=== PATIENT | female | born 2000 | race Caucasian/White ===

== ENCOUNTER 2025-01-12 12:47 | Inpatient (IN) ==
[2025-01-12] MEDS ORDERED: OXYTOCIN 30 UNITS/NSS 30 UNITS/500 ML BAG IV PRN (13:32)
[2025-01-12] MEDS ORDERED: CALCIUM CARBONATE 500 MG CHEWABLE TAB PO PRN (13:32)
[2025-01-12] MEDS ORDERED: LIDOCAINE 1% LOCAL 20 ML VIAL INFIL PRN (13:32)
--- NOTE | 2025-01-12 13:47 | History & Physical Report ---
Date of Service January 12, 2025 Assessment & Plan (1) Bicornate uterus complicating : (2) Ulcerative colitis: (3) Uterine contractions at greater than 20 weeks of gestation: Plan: 24-year-old G1, P0 at 38 weeks and 5 days of gestation and presents today in labor, Vital signs stable afebrile, heart rate reassuring, GBS negative, Plan to admit, monitor, labs, patient desires to ambulate and does not plan to get epidural for now, All questions were answered. Admission and Anticipated Discharge Date Admission Date: January 12, 2025 History of Present Illness Chief Complaint: contractions Primary Care Provider: NO PCP Patient is a 24-year-old at 38 weeks and 5 days gestation who has been feeling contractions since last night 10 PM, they got more regular and painful after 2 AM. She had pinkish mucousy discharge but no leakage of fluid or vaginal bleeding. She has good movements. Her has been uncomplicated, 1. History of ulcerative colitis under control with medications, 2. Bicornuate uterus, normal growth last week per MFM ultrasound, GBS negative Allergies Allergy/AdvReac Type Severity Reaction Status Date / Time No Known Allergies Allergy Unverified 01/12/25 13:47 Home Medications Medication Instructions Recorded Confirmed Type 1 tab PO DAILY 01/12/25 01/12/25 History azathioprine 50 mg tablet (Imuran) 100 mg PO DAILY 01/12/25 01/12/25 History cyanocobalamin (vitamin B-12) 1,000 mcg PO DAILY 01/12/25 01/12/25 History 1,000 mcg capsule ferrous sulfate 65 mg PO DAILY 01/12/25 01/12/25 History mesalamine 1.2 gram tablet,delayed 4.8 g PO DAILY 01/12/25 01/12/25 History release (Lialda) Patient History Medical History Abnormal colonoscopy Anemia affecting Bicornate uterus complicating Bicornate uterus Ulcerative colitis Surgical History History of appendectomy Family History Grandfather (Maternal) Hypertension Grandmother (Maternal) Diabetes 1.5, managed as type 2 Other Congenital kidney disease Social History Smoking Status: Never smoker Second Hand Exposure: No; Do You Dip or Chew Tobacco: No; Hx Alcohol Use: No Hx Substance Use: No Preferred Language: Romanian Communication Ability: Effective Calliope Player Required: No Beliefs That Will Affect Care: None marital status: Current Living Situation: Spouse Current Living Situation Comment: Pt lives with her , Emery, and her sister, Maria Del Carmen. Pt has 2 cats. Other Information That Helps Us Care for You: No Feels Safe at Home: Yes Safety Concerns: Feels Safe At This Time Assistive Devices: None LITIGATION SUPPORT ANALYST History no history of STDs, no history of chlamydia, gonorrhea, herpes Review of Systems as per Subjective / HPI Physical Exam Constitutional: WD/WN, vitals as above well developed and well nourished Gastrointestinal (Abdomen): normal bowel sounds, soft, nontender, no hepatos plenomegaly Genitourinary: normal external appearance OB Exam Abdomen: + vertex ( confirmed by ultrasound) Manual OB Exam: + cervical dilation 4 cm, + cervical effacement 80% and + station -2 OB Exam Monitor Tracing: + external uterine monitor used and + category I Results & Data Vital Signs (Past 12 Hours) Vital Signs Temp Pulse Resp BP O2 Del Method 01/12/25 13:34 68 119/73 01/12/25 13:11 37.0 C 76 18 127/74 Room Air 01/12/25 12:57 76 127/74 (1) Bicornate uterus complicating Trimester: third trimester Qualified Code(s): O34.03 - Maternal care for unspecified congenital malformation of uterus, third trimester; Q51.3 - Bicornate uterus (2) Ulcerative colitis Ulcerative colitis location: unspecified ulcerative colitis location Digestive disease complication type: unspecified complication Qualified Code(s): K51.919 - Ulcerative colitis, unspecified with unspecified complications
[2025-01-12] MEDS: LACTATED RINGER'S 1,000 ML IV PRN (14:07)
[2025-01-12 14:48] LABS: Hematocrit (blood only) 36.7 % (37.0-47.0); Hemoglobin 13.0 g/dl (12.0-16.0); Mean Corpuscular Hemoglobin 32.0 pg (25.0-34.0); Mean Corpuscular Volume 90.4 fL (80.0-100.0); Platelet Count 231 K/uL (130-400); RDW Standard Deviation 45.5 fL (36.4-46.3); Red Blood Count 4.06 M/uL (4.20-5.40); White Blood Count 10.70 K/ul (4.8-10.8)
[2025-01-12] MEDS ORDERED: SODIUM CHLORIDE 0.9% PF INJ 10 ML VIAL ONE (16:09)
[2025-01-12] MEDS ORDERED: SODIUM CHLORIDE 0.9% PF INJ 10 ML VIAL EPI PRN (16:40)
[2025-01-12] MEDS ORDERED: NALOXONE HCL 0.4 MG/1 ML VIAL/CARP IV PRN (16:40)
[2025-01-12] MEDS ORDERED: LIDOCAINE 2% MPF LOCAL 5 ML VIAL EPI PRN (16:40)
[2025-01-12] MEDS ORDERED: NALBUPHINE HCL INJ 10 MG/ML AMP IV PRN (16:40)
[2025-01-12] MEDS ORDERED: diphenhydrAMINE 50 MG/ML VIAL IV PRN (16:40)
[2025-01-12] MEDS ORDERED: ROPIVACAINE 0.5% PF 5 MG/ML 20 ML VIAL EPI PRN (16:40)
[2025-01-12] MEDS ORDERED: BUPIVACAINE 0.25% PF 30 ML VIAL EPI PRN (16:40)
[2025-01-12] MEDS ORDERED: NALOXONE HCL 1 MG in SODIUM CHLORIDE 0.9% 1,000 ML IV PRN (16:40)
--- NOTE | 2025-01-12 16:40 | Anesthesiology Consultation ---
Date of Service January 12, 2025 Assessment & Plan ASA ASA3 Proposed Anesthesia Anesthesia Type: Labor Epidural Risk / Benefits Reviewed With: PT / POA / Parent / Guardian, Accepts Plan and Informed Consent Obtained History Height/Weight Height: 5 ft 4 in Weight: 84.822 kg Allergies Allergy/AdvReac Type Severity Reaction Status Date / Time No Known Allergies Allergy Unverified 01/12/25 13:47 Medications Home Medications Medication Instructions Recorded Confirmed Last Taken 1 tab PO DAILY 01/12/25 01/12/25 01/12/25 08:00 azathioprine 50 mg tablet (Imuran) 100 mg PO DAILY 01/12/25 01/12/25 01/12/25 08:00 cyanocobalamin (vitamin B-12) 1,000 mcg PO DAILY 01/12/25 01/12/25 01/12/25 08:00 1,000 mcg capsule ferrous sulfate 65 mg PO DAILY 01/12/25 01/12/25 01/12/25 08:00 mesalamine 1.2 gram tablet,delayed 4.8 g PO DAILY 01/12/25 01/12/25 01/12/25 08:00 release (Lialda) Active Medications Generic Name Dose Route Start Last Admin Trade Name Freq PRN Reason Stop Dose Admin Lactated Ringer's 1,000 mls @ 150 mls/hr 01/12/25 13:32 01/12/25 16:02 Lr IV 01/14/25 13:31 999 mls/hr .[id number] PRN Infusion L&D Protocol Protocol Past Medical History Medical History Abnormal colonoscopy Anemia affecting Bicornate uterus complicating Bicornate uterus Ulcerative colitis Exercise / Class Metabolic Activity II 4-5 Yardwork/Stairs/Walk up hill Past Family History Family History Grandfather (Maternal) Hypertension Grandmother (Maternal) Diabetes 1.5, managed as type 2 Other Congenital kidney disease Past Surgical History Surgical History History of appendectomy Past Anesthesia History No Hx of Anesthesia Complications and No Family Hx of Anesthesia Complications History of PONV No Hx of PONV and No Hx of Motion Sickness Social History Smoking Status: Never smoker Do You Dip or Chew Tobacco: No Hx Alcohol Use: No Hx Substance Use: No substance use type: does not use Review of Systems denies fever/cough/ colds/ chest pain/ SOB/ NATASHA denies NATASHA Physical Exam Vital Signs Last Vital Signs Temp 36.7 C 01/12/25 16:21 Pulse 80 01/12/25 16:36 Resp 20 01/12/25 16:21 BP 126/72 01/12/25 16:36 Pulse Ox 99 01/12/25 16:36 O2 Del Method Room Air 01/12/25 13:11 ENMT Mouth: no TMJ abnormality and no dentition abnormality Thyromental Distance: > or= 3.5 Finger Breadths Mallampati Class: II Neck neck extension not limited Respiratory normal respiratory effort; no respiratory distress Auscultation: lungs clear to auscultation bilaterally Cardiovascular Rate/Rhythm: regular rate and regular rhythm Neurologic moves all extremities Psychiatric Orientation: alert and oriented x 3 Testing Laboratory Results 01/12/25 14:07
[2025-01-12] MEDS: BUPIVACAINE 0.25% PF 30 ML VIAL ONE (17:11)
[2025-01-12] MEDS: LIDOCAINE 2%/EPINEPHRINE 1:200,000 20 ML PF ONE (17:11)
[2025-01-12] MEDS: SODIUM CHLORIDE 0.9% PF INJ 10 ML VIAL EPI STA (17:13)
[2025-01-12] MEDS: LIDOCAINE 2%/EPINEPHRINE 1:200,000 20 ML PF EPI STA (17:13)
[2025-01-12] MEDS: fentANYL 2 MCG/ML BUPIVacaine 0.125%-NSS 100ML BAG ONE (17:16)
--- NOTE | 2025-01-12 17:56 | Obstetrical Progress Note ---
Date of Service January 12, 2025 Assessment & Plan Admission and Anticipated Discharge Date Admission Date: January 12, 2025 Subjective Patient received epidural for pain and comfortable now. Vital signs stable afebrile, heart rate category 1, Contractions every 4-5 minutes, Cervix is 4-5 cm dilated, 80% effaced, bulging bag, AROM clear initially and then bloody change, head at -2 station anterior fontanelle is at 9 o'clock position, Continue to monitor closely, Augment with oxytocin as needed, All questions were answered. Results & Data Vital Signs (Past 12 Hours) Vital Signs Temp Pulse Resp BP Pulse Ox O2 Del Method 01/12/25 17:53 89 92 01/12/25 17:51 100 01/12/25 17:51 79 01/12/25 17:51 80 140/75 01/12/25 17:47 87 156/78 H 01/12/25 17:46 83 100 01/12/25 17:42 89 129/80 01/12/25 17:41 91 H 99 01/12/25 17:36 82 125/65 100 01/12/25 17:31 78 128/68 97 01/12/25 17:30 18 01/12/25 17:30 18 01/12/25 17:26 98 01/12/25 17:26 78 01/12/25 17:26 75 124/69 01/12/25 17:22 88 91 01/12/25 17:21 99 01/12/25 17:21 88 01/12/25 17:21 85 126/69 01/12/25 17:18 78 124/67 01/12/25 17:17 87 118/68 01/12/25 17:16 83 99 01/12/25 17:15 89 129/69 01/12/25 17:12 86 124/65 01/12/25 17:11 86 100 01/12/25 17:10 90 125/66 01/12/25 17:09 85 130/71 01/12/25 17:07 86 134/70 01/12/25 17:06 84 100 01/12/25 17:05 131/73 01/12/25 17:02 81 136/71 01/12/25 17:01 100 01/12/25 17:01 71 01/12/25 17:01 80 134/70 01/12/25 16:59 80 145/81 H 01/12/25 16:56 80 117/69 100 01/12/25 16:55 80 122/73 01/12/25 16:52 80 137/77 01/12/25 16:51 92 H 99 01/12/25 16:50 83 127/76 01/12/25 16:46 83 100 01/12/25 16:41 75 99 01/12/25 16:36 80 126/72 99 01/12/25 16:31 93 H 100 01/12/25 16:26 77 99 01/12/25 16:21 36.7 C 84 20 127/85 100 01/12/25 16:16 70 99 01/12/25 15:51 83 129/76 01/12/25 15:36 124/68 01/12/25 15:21 90 137/79 01/12/25 14:36 72 130/80 01/12/25 14:19 70 127/76 01/12/25 13:48 80 121/73 01/12/25 13:34 68 119/73 01/12/25 13:11 37.0 C 76 18 127/74 Room Air 01/12/25 12:57 76 127/74
[2025-01-12] MEDS: BUPIVACAINE 0.25% PF 30 ML VIAL EPI STA (18:40)
[2025-01-12] MEDS: OXYTOCIN 30 UNITS/NSS 30 UNITS/500 ML BAG IV PRN (18:49)
--- NOTE | 2025-01-12 22:03 | Obstetrical Progress Note ---
Date of Service January 12, 2025 Assessment & Plan Admission and Anticipated Discharge Date Admission Date: January 12, 2025 Subjective Patient has been comfortable. Vital signs stable afebrile, heart rate category 1, [place] contractions were every 3 to 4 minutes, Pitocin is at 10 milliunits/min, Vaginal exam, cervix is 7 cm, 80%, head is at 0 station, anterior fontanelle is flat 9 o'clock position, Continue monitor closely. Results & Data Vital Signs (Past 12 Hours) Vital Signs Temp Pulse Resp BP Pulse Ox O2 Del Method 01/12/25 22:01 85 98 01/12/25 21:56 88 97 01/12/25 21:51 99 H 96 01/12/25 21:46 105 H 97 01/12/25 21:43 97 H 135/80 01/12/25 21:41 102 H 97 01/12/25 21:36 99 H 96 01/12/25 21:31 98 H 98 01/12/25 21:26 112 H 97 01/12/25 21:21 104 H 95 01/12/25 21:16 90 97 01/12/25 21:12 86 141/65 H 01/12/25 21:11 87 96 01/12/25 21:06 94 H 98 01/12/25 21:01 88 98 01/12/25 20:56 102 H 98 01/12/25 20:51 89 99 01/12/25 20:46 86 98 01/12/25 20:44 90 135/83 01/12/25 20:41 109 H 98 01/12/25 20:36 138 H 99 01/12/25 20:31 79 98 01/12/25 20:26 78 98 01/12/25 20:21 85 97 01/12/25 20:16 80 98 01/12/25 20:12 81 104/55 L 01/12/25 20:11 82 99 01/12/25 20:06 74 99 01/12/25 20:01 85 98 01/12/25 19:58 78 111/58 L 01/12/25 19:56 90 98 01/12/25 19:52 92 H 91 01/12/25 19:51 88 95 01/12/25 19:46 85 97 01/12/25 19:41 99 01/12/25 19:41 85 01/12/25 19:41 86 119/62 01/12/25 19:36 88 97 01/12/25 19:31 81 98 01/12/25 19:27 85 124/63 01/12/25 19:26 85 99 01/12/25 19:21 88 99 01/12/25 19:16 91 H 99 01/12/25 19:11 82 127/70 99 01/12/25 19:08 92 H 92 01/12/25 19:06 92 H 100 01/12/25 19:05 16 01/12/25 19:05 37.1 C 16 01/12/25 19:01 100 H 100 01/12/25 18:56 92 H 129/70 100 01/12/25 18:51 88 99 01/12/25 18:46 85 100 01/12/25 18:41 97 H 99 01/12/25 18:36 83 100 01/12/25 18:31 89 100 01/12/25 18:26 89 100 01/12/25 18:25 96 H 93 01/12/25 18:22 78 130/65 01/12/25 18:21 75 98 01/12/25 18:17 74 130/64 01/12/25 18:16 77 98 01/12/25 18:12 78 130/62 01/12/25 18:11 72 98 01/12/25 18:06 76 128/69 98 01/12/25 18:01 78 126/71 99 01/12/25 18:00 18 01/12/25 18:00 18 01/12/25 17:56 99 01/12/25 17:56 80 01/12/25 17:56 78 123/60 01/12/25 17:53 89 92 01/12/25 17:51 100 01/12/25 17:51 79 01/12/25 17:51 80 140/75 01/12/25 17:47 87 156/78 H 01/12/25 17:46 83 100 01/12/25 17:42 89 129/80 01/12/25 17:41 91 H 99 01/12/25 17:36 82 125/65 100 01/12/25 17:31 78 128/68 97 01/12/25 17:30 18 01/12/25 17:30 18 01/12/25 17:26 98 01/12/25 17:26 78 01/12/25 17:26 75 124/69 01/12/25 17:22 88 91 01/12/25 17:21 99 01/12/25 17:21 88 01/12/25 17:21 85 126/69 01/12/25 17:18 78 124/67 01/12/25 17:17 87 118/68 01/12/25 17:16 83 99 01/12/25 17:15 89 129/69 01/12/25 17:12 86 124/65 01/12/25 17:11 86 100 01/12/25 17:10 90 125/66 01/12/25 17:09 85 130/71 01/12/25 17:07 86 134/70 01/12/25 17:06 84 100 01/12/25 17:05 131/73 01/12/25 17:02 81 136/71 01/12/25 17:01 100 01/12/25 17:01 71 01/12/25 17:01 80 134/70 01/12/25 16:59 80 145/81 H 01/12/25 16:56 80 117/69 100 01/12/25 16:55 80 122/73 01/12/25 16:52 80 137/77 01/12/25 16:51 92 H 99 01/12/25 16:50 83 127/76 01/12/25 16:46 83 100 01/12/25 16:41 75 99 01/12/25 16:36 80 126/72 99 01/12/25 16:31 93 H 100 01/12/25 16:26 77 99 01/12/25 16:21 36.7 C 84 20 127/85 100 01/12/25 16:16 70 99 01/12/25 15:51 83 129/76 01/12/25 15:36 124/68 01/12/25 15:21 90 137/79 01/12/25 14:36 72 130/80 01/12/25 14:19 70 127/76 01/12/25 13:48 80 121/73 01/12/25 13:34 68 119/73 01/12/25 13:11 37.0 C 76 18 127/74 Room Air 01/12/25 12:57 76 127/74
[2025-01-12] MEDS: ACETAMINOPHEN 500 MG TAB PO PRN (23:45)
[2025-01-12] MEDS: ONDANSETRON INJ 2 MG/ML 2 ML VIAL IV PRN (23:45)
[2025-01-12] MEDS: fentANYL 2 MCG/ML BUPIVacaine 0.125%-NSS 100ML BAG EPI PRN (23:46)
--- NOTE | 2025-01-13 01:45 | Obstetrical Progress Note ---
Date of Service January 13, 2025 Assessment & Plan Admission and Anticipated Discharge Date Admission Date: January 12, 2025 Subjective Patient has been pushing for the last 20 minutes. heart rate category 1, contractions every 2 to 3 minutes, had visit +2 station, Continue to monitor closely, Anticipate . Results & Data Vital Signs (Past 12 Hours) Vital Signs Temp Pulse Resp BP Pulse Ox 01/13/25 01:43 65 01/13/25 01:42 68 124/60 94 01/13/25 01:38 70 79 L 01/13/25 01:37 65 93 01/13/25 01:32 70 95 01/13/25 01:30 69 82 L 01/13/25 01:27 37.0 C 72 93 01/13/25 01:23 98 H 90 01/13/25 01:22 83 82 L 01/13/25 01:17 86 89 L 01/13/25 01:15 36.8 C 01/13/25 01:12 84 97 01/13/25 01:11 94 H 93 01/13/25 01:07 89 98 01/13/25 01:03 101 H 91 01/13/25 01:02 95 H 97 01/13/25 00:57 82 95 01/13/25 00:52 79 96 01/13/25 00:47 83 96 01/13/25 00:43 83 124/73 01/13/25 00:42 90 98 01/13/25 00:37 84 98 01/13/25 00:32 82 98 01/13/25 00:27 81 97 01/13/25 00:22 80 97 01/13/25 00:17 79 96 01/13/25 00:13 77 131/74 01/13/25 00:12 87 99 01/13/25 00:07 80 98 01/13/25 00:02 87 98 01/12/25 23:57 80 98 01/12/25 23:52 84 98 01/12/25 23:48 90 94 01/12/25 23:47 83 99 01/12/25 23:42 99 01/12/25 23:42 83 01/12/25 23:42 81 143/78 H 01/12/25 23:37 107 H 94 01/12/25 23:32 86 97 01/12/25 23:27 91 H 96 01/12/25 23:22 99 H 89 L 01/12/25 23:21 91 H 93 01/12/25 23:16 94 H 97 01/12/25 23:13 91 H 127/61 01/12/25 23:11 91 H 97 01/12/25 23:06 89 97 01/12/25 23:01 95 H 97 01/12/25 23:00 93 H 91 01/12/25 22:56 87 98 01/12/25 22:53 18 01/12/25 22:53 36.7 C 18 01/12/25 22:51 91 H 99 01/12/25 22:50 95 H 91 01/12/25 22:46 78 96 01/12/25 22:43 77 125/67 01/12/25 22:41 77 96 01/12/25 22:36 81 96 01/12/25 22:31 83 98 01/12/25 22:26 120 H 94 01/12/25 22:25 92 H 91 01/12/25 22:21 85 97 01/12/25 22:16 95 H 96 01/12/25 22:13 88 133/76 01/12/25 22:11 87 98 01/12/25 22:06 91 H 95 01/12/25 22:01 85 98 01/12/25 21:56 88 97 01/12/25 21:51 99 H 96 01/12/25 21:46 105 H 97 01/12/25 21:43 97 H 135/80 01/12/25 21:41 102 H 97 01/12/25 21:36 99 H 96 01/12/25 21:31 98 H 98 01/12/25 21:26 112 H 97 01/12/25 21:21 104 H 95 01/12/25 21:16 90 97 01/12/25 21:12 86 141/65 H 01/12/25 21:11 87 96 01/12/25 21:06 94 H 98 01/12/25 21:01 88 98 01/12/25 20:56 102 H 98 01/12/25 20:51 89 99 01/12/25 20:46 86 98 01/12/25 20:45 16 01/12/25 20:45 37.0 C 16 01/12/25 20:44 90 135/83 01/12/25 20:41 109 H 98 01/12/25 20:36 138 H 99 01/12/25 20:31 79 98 01/12/25 20:26 78 98 01/12/25 20:21 85 97 01/12/25 20:16 80 98 01/12/25 20:12 81 104/55 L 01/12/25 20:11 82 99 01/12/25 20:06 74 99 01/12/25 20:01 85 98 01/12/25 19:58 78 111/58 L 01/12/25 19:56 90 98 01/12/25 19:52 92 H 91 01/12/25 19:51 88 95 01/12/25 19:46 85 97 01/12/25 19:41 99 01/12/25 19:41 85 01/12/25 19:41 86 119/62 01/12/25 19:36 88 97 01/12/25 19:31 81 98 01/12/25 19:27 85 124/63 01/12/25 19:26 85 99 01/12/25 19:21 88 99 01/12/25 19:16 91 H 99 01/12/25 19:11 82 127/70 99 01/12/25 19:08 92 H 92 01/12/25 19:06 92 H 100 01/12/25 19:05 16 01/12/25 19:05 37.1 C 16 01/12/25 19:01 100 H 100 01/12/25 18:56 92 H 129/70 100 01/12/25 18:51 88 99 01/12/25 18:46 85 100 01/12/25 18:41 97 H 99 01/12/25 18:36 83 100 01/12/25 18:31 89 100 01/12/25 18:26 89 100 01/12/25 18:25 96 H 93 01/12/25 18:22 78 130/65 01/12/25 18:21 75 98 01/12/25 18:17 74 130/64 01/12/25 18:16 77 98 01/12/25 18:12 78 130/62 01/12/25 18:11 72 98 01/12/25 18:06 76 128/69 98 01/12/25 18:01 78 126/71 99 01/12/25 18:00 18 01/12/25 18:00 18 01/12/25 17:56 99 01/12/25 17:56 80 01/12/25 17:56 78 123/60 01/12/25 17:53 89 92 01/12/25 17:51 100 01/12/25 17:51 79 01/12/25 17:51 80 140/75 01/12/25 17:47 87 156/78 H 01/12/25 17:46 83 100 01/12/25 17:42 89 129/80 01/12/25 17:41 91 H 99 01/12/25 17:36 82 125/65 100 01/12/25 17:31 78 128/68 97 01/12/25 17:30 18 01/12/25 17:30 18 01/12/25 17:26 98 01/12/25 17:26 78 01/12/25 17:26 75 124/69 01/12/25 17:22 88 91 01/12/25 17:21 99 01/12/25 17:21 88 01/12/25 17:21 85 126/69 01/12/25 17:18 78 124/67 01/12/25 17:17 87 118/68 01/12/25 17:16 83 99 01/12/25 17:15 89 129/69 01/12/25 17:12 86 124/65 01/12/25 17:11 86 100 01/12/25 17:10 90 125/66 01/12/25 17:09 85 130/71 01/12/25 17:07 86 134/70 01/12/25 17:06 84 100 01/12/25 17:05 131/73 01/12/25 17:02 81 136/71 01/12/25 17:01 100 01/12/25 17:01 71 01/12/25 17:01 80 134/70 01/12/25 16:59 80 145/81 H 01/12/25 16:56 80 117/69 100 01/12/25 16:55 80 122/73 01/12/25 16:52 80 137/77 01/12/25 16:51 92 H 99 01/12/25 16:50 83 127/76 01/12/25 16:46 83 100 01/12/25 16:41 75 99 01/12/25 16:36 80 126/72 99 01/12/25 16:31 93 H 100 01/12/25 16:26 77 99 01/12/25 16:21 36.7 C 84 20 127/85 100 01/12/25 16:16 70 99 01/12/25 15:51 83 129/76 01/12/25 15:36 124/68 01/12/25 15:21 90 137/79 01/12/25 14:36 72 130/80 01/12/25 14:19 70 127/76 01/12/25 13:48 80 121/73
[2025-01-13] MEDS: MINERAL OIL 30 ML UDC ONE (02:40)
[2025-01-13] MEDS ORDERED: DIPHTHER/TETAN/PERTUS Vaccine (Tdap, Adol/Adult) 0.5mL IM ONE (03:14)
[2025-01-13] MEDS ORDERED: OXYTOCIN 30 UNITS/NSS 30 UNITS/500 ML BAG IV PRN (03:14)
[2025-01-13] MEDS ORDERED: HYDROCORTISONE ACETATE 25 MG SUPP PR PRN (03:14)
--- NOTE | 2025-01-13 03:18 | Delivery Summary ---
Vaginal Delivery Summary Date of Service January 13, 2025 Vaginal Delivery Summary Patient was found to be fully dilated and desired to push. She pushed for about 70 min and delivered the head and then shoulders with minimal traction. The baby was handed off to the mother. The cord was clampedx2 and cut at 1 minute. The vagina and perineum were checked and found to have 2nd degree perineal laceration. Rectal exam was done and noted good sphincter tone. The gloves were changes. The vaginal mucosa was repaired with 2/0 vicryl and skin on subcuticular fashion. there were small labial lacerations bilaterally on the superior side those were repaired with 4-0 Vicryl on SH needle. The placenta was delivered spontaneously as intact and complete. The uterus was explored and found to be empty. QBL was 187 ml. The fundus was firm. The baby was a viable male , Apgars 8/9, the weight is pending The mother and the baby tolerated the procedure well. No complications happened and I was present during whole procedure.
[2025-01-13] MEDS: IBUPROFEN 600 MG TAB PO PRN (04:16)
[2025-01-13] MEDS: BENZOCAINE 20% SPRY 85 APPLN/85 GM CAN EXT PRN (04:17)
[2025-01-13] MEDS: METHYLERGONOVINE MALEATE 0.2 MG TAB PO SCH (07:19)
[2025-01-13] MEDS: DOCUSATE SODIUM 100 MG CAP PO SCH (07:50)
[2025-01-13] MEDS: PRENATAL VITAMIN 1 TAB PO SCH (07:50)
[2025-01-13] MEDS: FERROUS SULFATE 325 MG TAB PO SCH (07:50)
--- NOTE | 2025-01-13 08:11 | Anesthesia Procedure Note ---
Date of Service January 13, 2025 Anesthesia Post Epidural Note Vital Signs Vital Signs: Temp Pulse Resp BP Pulse Ox O2 Del Method 98.6 F 116 H 18 132/63 97 Room Air 01/13/25 01:27 01/13/25 05:24 01/13/25 04:24 01/13/25 05:24 01/13/25 05:23 01/12/25 13:11 Pain Intensity Abdomen: Pain Intensity: 5 Notes Mental Status: alert / awake / arousable and participated in evaluation Nausea / Vomiting: adequately controlled Pain: adequately controlled Airway Patency, RR, SpO2: stable & adequate BP & HR: stable & adequate Hydration State: stable & adequate Neuraxial Anesthesia: was administered and sensory block is resolving Anesthetic Complications: no major complications apparent and Pt Satisfied with anesthetic care Epidural: Removed without complications and With tip intact
[2025-01-13] MEDS: ACETAMINOPHEN 325 MG TAB PO PRN (19:56)
[2025-01-14 07:41] LABS: Hematocrit (blood only) 33.8 % (37.0-47.0); Hemoglobin 11.2 g/dl (12.0-16.0); Mean Corpuscular Hemoglobin 30.9 pg (25.0-34.0); Mean Corpuscular Volume 93.1 fL (80.0-100.0); Platelet Count 180 K/uL (130-400); RDW Standard Deviation 50.2 fL (36.4-46.3); Red Blood Count 3.63 M/uL (4.20-5.40); White Blood Count 14.97 K/ul (4.8-10.8)
[2025-01-14] MEDS ORDERED: Nursing to Pharmacy Communication SCH (10:00)
--- NOTE | 2025-01-14 10:53 | Obstetrical Progress Note ---
Date of Service January 14, 2025 Subjective Ambulation: ambulating normally Voiding: no voiding problems Passing Gas:: Yes Diet Tolerance:: regular diet Lochia:: Small Feeding Type:: breast feeding Current Pain Level(1-10): 0 doing well Physical Exam Constitutional WD/WN, vitals as above Gastrointestinal (Abdomen) Inspection/Auscultation: abdomen normal to inspection fundus firm below U and soft/non-tender. Musculoskeletal Extremities: extremities normal to inspection Skin no rashes, warm and dry Neurologic patellar DTR's 2+ bilat, sensation intact Psychiatric A+Ox3, euthymic affect Results & Data Vital Signs (Past 12 Hours) Vital Signs Temp Pulse Resp BP Pulse Ox O2 Del Method 01/14/25 00:00 37.6 C H 81 16 134/81 97 Room Air Laboratory Results Laboratory Results - last 72 hr 01/12/25 01/14/25 14:07 07:10 WBC 10.70 14.97 H RBC 4.06 L 3.63 L Hgb 13.0 11.2 L Hct 36.7 L 33.8 L MCV 90.4 93.1 MCH 32.0 30.9 MCHC 35.4 33.1 RDW Std Deviation 45.5 50.2 H RDW Coeff of Tony 13.7 14.6 H Plt Count 231 180 MPV 10.4 10.2 Treponema pallidum Ab Negative
[2025-01-15 06:38] LABS: Hematocrit (blood only) 33.2 % (37.0-47.0); Hemoglobin 10.9 g/dl (12.0-16.0)
[2025-01-15] MEDS: MESALAMINE 1.2 GM TABDR PO SCH (08:47)
--- NOTE | 2025-01-15 09:58 | Obstetrical Progress Note ---
Date of Service January 15, 2025 Assessment & Plan Admission and Anticipated Discharge Date Admission Date: January 12, 2025 Subjective abdomen soft and non tender no calf tenderness ambulating well vaginal bleeding scant hgb 10.9 Results & Data Vital Signs (Past 12 Hours) Vital Signs Temp Pulse Resp BP Pulse Ox O2 Del Method 01/14/25 23:03 36.8 C 90 18 135/81 97 Room Air
[2025-01-15 10:19] VITALS: BP 115/75; PULSE 84; RESP 16; TEMP 98.4; O2SAT 99
== END 2025-01-15 13:53 | disposition home or self-care (01) | DRG 806 ==
LOC: OPB 12:47 → 4S1 12:52 → 4E2 01-13 06:13